=== PATIENT | female | born 1990 | race Caucasian/White ===

== ENCOUNTER 2017-11-27 19:12 | Emergency (ER) | payer BC, OTHER ==
[2017-11-27] MEDS: KETOROLAC 60 MG INJ IM (19:45)
[2017-11-27] MEDS: morphine 4 MG/ML VIAL IM (19:46)
== END 2017-11-27 20:37 | disposition home or self-care (01) ==
LOC: E/R 19:12
DX: S16.1XXA Strain of muscle, fascia and tendon at neck level, initial encounter (principal); F17.210 Nicotine dependence, cigarettes, uncomplicated; V49.50XA Passenger injured in collision with unspecified motor vehicles in traffic accident, initial encounter
CPT/HCPCS: 96372; 99284-25